=== PATIENT | female | born 1965 | race Caucasian/White ===

== ENCOUNTER → 2023-10-01 16:39 | Outpatient (REF) | payer BC, SELFPAY ==
[2023-10-01 17:46] LABS: Urine Albumin Negative (Neg - Trace); Urine Bilirubin Negative (Negative); Urine Character Clear (Clear); Urine Color Yellow; Urine Glucose Negative (Negative); Urine Ketone Negative (Negative); Urine Leukocyte 2+ (Negative); Urine Nitrite Negative (Negative); Urine Occult Blood Negative (Negative); Urine Specific Gravity 1.025 (<1.030); Urine Urobilinogen Negative (Neg - 1+)
[2023-10-01 18:04] LABS: Urine White Cell 16-20 /HPF (0-5)
[2023-10-01 18:19] LABS: Urine Protein < 5 mg/dl
[2023-10-02 23:49] LABS: Complement C3 116 mg/dl (88-165)
[2023-10-04 08:28] LABS: SSA 52 (Ro)(ENA) Ab, IgG 34 AU/mL (0-40); SSA 60 (Ro)(ENA) Ab, IgG 1 AU/mL (0-40); SSB (La)(ENA) Ab, IgG 0 AU/mL (0-40); Scleroderma Antibody (Scl-70) 1 AU/mL (0-40)
[2023-10-04 14:32] LABS: Smith/RNP (ENA), IgG 4 Units (0-19)
[2023-10-05 01:30] LABS: ds-DNA Ab, IgG Reflex To Titer 11 IU (0-24)
== END ==
LOC: REG 16:39
PROVIDERS: ATTENDING PHYSICIAN Internal Medicine Rheumatology; FAMILY PHYSICIAN Internal Medicine
DX: R76.8 Other specified abnormal immunological findings in serum (principal); I73.00 Raynaud's syndrome without gangrene
CPT/HCPCS: 36415; 81003; 81015; 82570; 84156; 86160; 86225; 86235

== ENCOUNTER 2023-10-03 12:03 | Outpatient (RCR) | payer OTHER, BC, SELFPAY | END 2023-10-03 23:59 | disposition home or self-care (01) | LOC: ROT 12:03 | PROVIDERS: ATTENDING PHYSICIAN Internal Medicine Rheumatology; FAMILY PHYSICIAN Internal Medicine | DX: G90.511 Complex regional pain syndrome I of right upper limb (principal); Z73.6 Limitation of activities due to disability | CPT/HCPCS: 97010; 97112; 97166; 97535 ==

== ENCOUNTER 2023-10-22 10:00 | Outpatient (RCR) | payer OTHER, BC, SELFPAY | END 2023-10-22 23:59 | disposition home or self-care (01) | LOC: ROT 10:00 | PROVIDERS: ATTENDING PHYSICIAN Internal Medicine Rheumatology; FAMILY PHYSICIAN Internal Medicine | DX: G90.511 Complex regional pain syndrome I of right upper limb (principal); Z73.6 Limitation of activities due to disability | CPT/HCPCS: 97010; 97112 ==

== ENCOUNTER → 2024-06-25 07:46 | Outpatient (REF) | payer OTHER, BC, SELFPAY ==
[2024-06-25 09:51] LABS: % Basophils 0.9 % (0-2); % Eosinophils 5.3 % (0-6); % Immature Granulocytes 0.3 % (0-0.5); % Lymphocytes 27.2 % (20.5-51.1); % Monocytes 9.3 % (1.7-9.3); Absolute Basophils 0.1 10^3/uL (0-0.2); Absolute Eosinophils 0.3 10^3/uL (0-0.7); Absolute Lymphocytes 1.8 10^3/uL (1.2-3.4); Absolute Monocytes 0.6 10^3/uL (0.1-0.6); Absolute Neutrophils 3.7 10^3/uL (1.4-6.5); Hematocrit 41.9 % (37.0-47.0); Hemoglobin 14.3 g/dL (12.0-16.0); Mean Corp Hgb Conc. 34.1 g/dL (33.0-37.0); Mean Corpuscular Hgb 32.9 pg (27.0-31.0); Mean Corpuscular Volume 96.3 fL (81.0-99.0); Mean Platelet Volume 10.8 fL (7.4-10.4); Nucleated Red Blood Cells % 0 %; Platelet Count 208 10^3/uL (130-400); Red Blood Cell Count 4.35 10^6/uL (4.20-5.40); Red Cell Dist. Width 11.3 % (11.5-14.5); White Blood Cell Count 6.5 10^3/uL (4.8-10.8)
[2024-06-25 10:02] LABS: Urine Albumin Negative (Neg - Trace); Urine Bilirubin Negative (Negative); Urine Character Clear (Clear); Urine Color Yellow; Urine Glucose Negative (Negative); Urine Ketone Negative (Negative); Urine Leukocyte Trace (Negative); Urine Nitrite Negative (Negative); Urine Occult Blood Negative (Negative); Urine Urobilinogen Negative (Neg - 1+)
[2024-06-25 10:45] LABS: ALT (SGPT) 31 U/L (0-35); AST (SGOT) 34 U/L (14-36); Albumin 4.6 g/dl (3.5-5.0); Alkaline Phosphatase 44 U/L (38-126); Blood Urea Nitrogen 18 mg/dl (7-17); Calcium 9.7 mg/dl (8.4-10.2); Carbon Dioxide 29 mmol/L (22-30); Chloride 103 mmol/L (98-107); Glucose 92 mg/dl (70-99); Potassium 5.8 mmol/L (3.5-5.1); Sodium 143 mmol/L (135-145); Total Bilirubin 0.3 mg/dl (0.2-1.3); Total Protein 7.3 g/dl (6.3-8.2); eGFR > 60.00
[2024-06-25 10:47] LABS: Erythrocyte Sed Rate 16 mm/hour (0-20)
[2024-06-25 10:48] LABS: Complement C3 125 mg/dl (88-165)
[2024-06-25 12:01] LABS: Urine Amorphous Seen
[2024-06-25 12:03] LABS: Urine Red Blood Cell 0-2 /HPF (0-2); Urine Urothelial Cell 16-20 /LPF (FEW)
== END ==
LOC: REG 07:46
PROVIDERS: ATTENDING PHYSICIAN Internal Medicine Rheumatology; FAMILY PHYSICIAN Internal Medicine
DX: G90.511 Complex regional pain syndrome I of right upper limb (principal); R76.8 Other specified abnormal immunological findings in serum
CPT/HCPCS: 36415; 80053; 81003; 81015; 85025; 85652; 86140; 86160

== ENCOUNTER → 2024-07-09 11:37 | Outpatient (REF) | payer BC, SELFPAY ==
[2024-07-09 13:12] LABS: Blood Urea Nitrogen 19 mg/dl (7-17); Calcium 9.7 mg/dl (8.4-10.2); Carbon Dioxide 31 mmol/L (22-30); Chloride 101 mmol/L (98-107); Glucose 79 mg/dl (70-99); Sodium 141 mmol/L (135-145); eGFR > 60.00
[2024-07-09 13:28] LABS: Free T4 0.97 ng/dl (0.78-2.19)
[2024-07-09 13:42] LABS: TSH 2.08 uIU/ml (0.47-4.68)
== END ==
LOC: REG 11:37
PROVIDERS: ATTENDING PHYSICIAN Internal Medicine Rheumatology; FAMILY PHYSICIAN Internal Medicine
DX: E87.5 Hyperkalemia (principal)
CPT/HCPCS: 36415; 80048; 84439; 84443

== ENCOUNTER 2024-09-30 06:38 | Day surgery (SDC) | payer BC, SELFPAY | END 2024-09-30 08:44 | disposition home or self-care (01) | LOC: GI 06:38 | PROVIDERS: ATTENDING PHYSICIAN Internal Medicine; FAMILY PHYSICIAN Family Medicine | DX: Z12.11 Encounter for screening for malignant neoplasm of colon (principal); K63.89 Other specified diseases of intestine; K64.8 Other hemorrhoids; D12.2 Benign neoplasm of ascending colon | CPT/HCPCS: 45385; 88305 ==

== ENCOUNTER → 2024-12-29 17:06 | Outpatient (REF) | payer BC, SELFPAY ==
[2024-12-29 17:40] LABS: % Basophils 0.7 % (0-2); % Eosinophils 3.5 % (0-6); % Immature Granulocytes 0.2 % (0-0.5); % Lymphocytes 31.7 % (20.5-51.1); % Monocytes 8.8 % (1.7-9.3); % Neutrophils 55.1 % (42.2-75.2); Absolute Basophils 0.1 10^3/uL (0-0.2); Absolute Eosinophils 0.3 10^3/uL (0-0.7); Absolute Lymphocytes 2.6 10^3/uL (1.2-3.4); Absolute Monocytes 0.7 10^3/uL (0.1-0.6); Absolute Neutrophils 4.5 10^3/uL (1.4-6.5); Hematocrit 41.5 % (37.0-47.0); Hemoglobin 14.1 g/dL (12.0-16.0); Mean Corpuscular Hgb 31.8 pg (27.0-31.0); Mean Corpuscular Volume 93.7 fL (81.0-99.0); Mean Platelet Volume 9.7 fL (7.4-10.4); Nucleated Red Blood Cells % 0 %; Platelet Count 222 10^3/uL (130-400); Red Blood Cell Count 4.43 10^6/uL (4.20-5.40); Red Cell Dist. Width 11.3 % (11.5-14.5); White Blood Cell Count 8.1 10^3/uL (4.8-10.8)
[2024-12-29 17:42] LABS: Urine Albumin Negative (Neg - Trace); Urine Bilirubin Negative (Negative); Urine Character Clear (Clear); Urine Color Yellow; Urine Glucose Negative (Negative); Urine Ketone Negative (Negative); Urine Leukocyte 1+ (Negative); Urine Nitrite Negative (Negative); Urine Occult Blood Negative (Negative); Urine Specific Gravity 1.025 (<1.030); Urine Urobilinogen Negative (Neg - 1+)
[2024-12-29 17:52] LABS: ALT (SGPT) 24 U/L (0-35); AST (SGOT) 24 U/L (14-36); Albumin 4.9 g/dl (3.5-5.0); Alkaline Phosphatase 43 U/L (38-126); Blood Urea Nitrogen 20 mg/dl (7-17); Calcium 9.6 mg/dl (8.4-10.2); Carbon Dioxide 28 mmol/L (22-30); Chloride 106 mmol/L (98-107); Glucose 97 mg/dl (70-99); Potassium 5.1 mmol/L (3.5-5.1); Sodium 142 mmol/L (135-145); Total Bilirubin 0.3 mg/dl (0.2-1.3); Total Protein 7.5 g/dl (6.3-8.2); eGFR > 60.00
[2024-12-29 17:59] LABS: Urine Bacteria Moderate (Negative); Urine Mucus Moderate; Urine Red Blood Cell 0-2 /HPF (0-2)
[2024-12-29 18:01] LABS: Urine Protein < 5 mg/dl
[2024-12-29 18:06] LABS: Free T4 0.95 ng/dl (0.78-2.19)
[2024-12-29 18:20] LABS: TSH 1.76 uIU/ml (0.47-4.68)
[2024-12-30 01:49] LABS: Complement C3 118 mg/dl (88-165)
== END ==
LOC: REG 17:06
PROVIDERS: ATTENDING PHYSICIAN Internal Medicine Rheumatology; FAMILY PHYSICIAN Family Medicine
DX: E87.5 Hyperkalemia (principal); R00.2 Palpitations; R76.8 Other specified abnormal immunological findings in serum; I73.00 Raynaud's syndrome without gangrene
CPT/HCPCS: 36415; 80053; 81003; 81015; 82570; 84156; 84439; 84443; 85025; 86160

== ENCOUNTER 2025-02-12 08:18 | Outpatient (RCR) | payer BC, SELFPAY | END 2025-02-12 23:59 | disposition home or self-care (01) | LOC: ROT 08:18 | PROVIDERS: ATTENDING PHYSICIAN Orthopaedic Surgery Hand Surgery; FAMILY PHYSICIAN Family Medicine | DX: M79.641 Pain in right hand (principal); Z73.6 Limitation of activities due to disability | CPT/HCPCS: 97760 ==

== ENCOUNTER → 2025-07-05 16:49 | Outpatient (REF) | payer BC, SELFPAY ==
[2025-07-05 17:29] LABS: Hematocrit 42.5 % (37.0-47.0); Hemoglobin 14.1 g/dL (12.0-16.0); Mean Corp Hgb Conc. 33.2 g/dL (33.0-37.0); Mean Corpuscular Volume 97.3 fL (81.0-99.0); Nucleated Red Blood Cells % 0 %; Platelet Count 215 10^3/uL (130-400); Red Cell Dist. Width 11.5 % (11.5-14.5)
[2025-07-05 17:32] LABS: Urine Character Clear (Clear)
[2025-07-05 18:31] LABS: ALT (SGPT) 37 U/L (0-35); AST (SGOT) 32 U/L (14-36); Albumin 4.7 g/dl (3.5-5.0); Alkaline Phosphatase 44 U/L (38-126); Blood Urea Nitrogen 19 mg/dl (7-17); Calcium 9.8 mg/dl (8.4-10.2); Carbon Dioxide 30 mmol/L (22-30); Chloride 100 mmol/L (98-107); Glucose 97 mg/dl (70-99); Potassium 4.2 mmol/L (3.5-5.1); Sodium 137 mmol/L (135-145); Total Protein 7.7 g/dl (6.3-8.2); eGFR > 60.00
== END ==
LOC: REG 16:49
PROVIDERS: ATTENDING PHYSICIAN Internal Medicine Rheumatology; FAMILY PHYSICIAN Family Medicine
DX: R76.89 Other specified abnormal immunological findings in serum (principal); I73.00 Raynaud's syndrome without gangrene
CPT/HCPCS: 36415; 80053; 81003; 82570; 84156; 85025; 85652; 86160